=== PATIENT | male | born 1995 | race Caucasian/White ===

== ENCOUNTER 2020-03-08 16:40 | Emergency (ER) | payer BC, OTHER ==
[~2020-03-08] VITALS: Ht 170.2 cm; Wt 104.8 kg
[2020-03-08 16:50] VITALS: BP 148/103
== END 2020-03-08 17:08 | disposition home or self-care (01) ==
LOC: ER 16:40
DX: J40 Bronchitis, not specified as acute or chronic (principal)
CPT/HCPCS: 71046